=== PATIENT | male | born 1940 | race Caucasian/White ===

== ENCOUNTER → 2016-10-27 | Outpatient (CLI) | payer BC ==
[~2016-10-27] MED LIST: ATOR-22 PO; BNC40 PO; DILT1CAP15 PO; MULT-506 PO; OPTIRAY 320 IV PRN
--- NOTE | 2016-10-27 12:29 | DIAGNOSTIC IMAGING REPORT ---
ABD/PELVIS IV CONTRAST ONLY CLINICAL HISTORY: 75 years-old Male presenting with COLON CA. TECHNIQUE: Multidetector CT of the abdomen and pelvis was performed after the administration of oral and intravenous contrast. IV contrast: 117 mL of Omnipaque 320. COMPARISON: 02/08/2016. CT DOSE: The estimated cumulative dose is 482.4 mGy-cm inclusive of the chest. FINDINGS: Medical Assisting Instructor topogram: Numerous surgical clips noted in the pelvis. Left subclavian Mediport terminates in the superior cavoatrial junction. Lung bases: Minimal bandlike atelectasis at the lung bases. Heart, normal in size. No pericardial or pleural effusion. Liver: Normal morphology. 5 mm hypodensity in segment 6 unchanged and likely hepatic cyst or hamartoma. No new lesion. Hepatic vasculature patent. Biliary: No intrahepatic or extrahepatic biliary ductal dilatation. Normal gallbladder. Pancreas: Normal. Spleen: Normal. Adrenal glands: Normal. Kidneys and ureters: Subcentimeter hypodensity at the upper pole the right kidney likely cyst. No hydronephrosis. Gastrointestinal tract: Moderate stool burden throughout mildly distended colon. Postsurgical changes of sigmoidectomy with a upper rectal anastomosis, which is widely patent. Interval resolution of previously noted bowel wall thickening of the terminal ileum with a possible second anastomotic suture line may be present in the ileocolic region. No suspicious bowel wall thickening or obstruction. Peritoneal cavity: No free fluid or intraperitoneal gas. Bladder: Bladder is mildly thick-walled, unchanged and possibly due to chronic outlet obstruction. Pelvic organs: Patient is status post prostatectomy. Vasculature: Atherosclerosis of the normal caliber abdominal aorta. IVC not opacified. Lymph nodes: No enlarged lymph nodes in the abdomen or pelvis. Abdominal wall: Normal. Musculoskeletal: Normal. IMPRESSION: 1. Postsurgical changes of sigmoidectomy. No evidence of recurrent or metastatic disease in abdomen or pelvis. 2. Interval resolution of prior wall thickening of the terminal ileum with a possible second anastomotic suture line in the ileocolic region. Electronically signed by: Jorge Cardozo M.D. 10/27/2016 12:27 PM Dictated Date/Time: 10/27/2016 12:18 PM
--- NOTE | 2016-10-27 12:35 | DIAGNOSTIC IMAGING REPORT ---
(CHEST) THORAX WITH HISTORY:75 yearsMaleCOLON CA . Follow-up exam. COMPARISON: CT abdomen and pelvis of same day, CT chest 02/08/2016 TECHNIQUE: Multiple axial CT images of the chest were obtained following the intravenous administration of 117 mL Optiray 320. FINDINGS: Thyroid is homogeneous. No pathologic adenopathy of the chest is identified. Left subclavian [id number] catheter is present with distal tip terminating near the superior cavoatrial junction. Heart is upper limits of normal in size. Coronary arterial calcifications are seen. There is atherosclerosis of the thoracic aorta. No pulmonary embolus identified. There is no pneumothorax, pleural effusion or focal airspace consolidation. Linear pleural-based subsegmental opacities of the lung bases suggest areas of atelectasis possibly with associated pleural parenchymal scarring. There is a new linear pleural-based opacity of the left upper lobe also appears reflect atelectasis and/or scarring with the linear nature of the opacity best seen on the coronal images. There is no change in the noncalcified areas of nodularity along the wall apices which measure up to 3 mm. No new or suspicious focal pulmonary nodules are identified to suggest metastatic disease. The central airways are patent. Is minimal tree-in-bud nodularity of the inferior segment lingula suggesting some infectious bronchiolitis is seen on images 44 and 45 of the axial series. Imaged upper abdominal structures demonstrate no acute abnormality. There is an apparent small hiatal hernia. No suspicious lytic or blastic bony lesions are identified. The bones are moderately demineralized. IMPRESSION: 1. No acute cardiopulmonary process. 2. Unchanged biapical pulmonary nodules measuring less than 4 mm suggest benign etiology. No new or suspicious pulmonary nodules are seen to suggest metastatic disease. 3. No pathologic appearing adenopathy or evidence of bony metastasis. 4. Linear pleural-based groundglass opacity of the left upper lobe and lingula suggests atelectasis. 5. Minimal bronchiolitis of the inferior segment lingula. The above report was generated using voice recognition software. It may contain grammatical, syntax or spelling errors. Electronically signed by: Jonah Cornell M.D. 10/27/2016 12:34 PM Dictated Date/Time: 10/27/2016 12:22 PM
== END | disposition home or self-care (01) ==
LOC: C.CTS 11:38
PROVIDERS: ATTEND Nurse Practitioner Family
DX: C18.7 Malignant neoplasm of sigmoid colon (principal)